=== PATIENT | male | born 1980 | race Caucasian/White ===

== ENCOUNTER → 2017-06-08 | Outpatient (CLI) | payer BC ==
[2017-06-08 09:34] LABS: BASO % 0.4 %; BASO ABS # 0.02 K/uL (0-0.2); EOS % 3.5 %; EOS ABS # 0.17 K/uL (0-0.5); HEMATOCRIT 44.6 % (42-52); IG# 0.02 K/uL (0.00-0.02); LYMPH % 20.4 %; LYMPH ABS # 0.99 K/uL (1.2-3.4); MEAN CELL VOLUME 86.9 fL (80-100); MEAN CORPUSCULAR HEMOGLOBIN 31.2 pg (25-34); MEAN CORPUSCULAR HGB CONC 35.9 g/dl (32-36); MEAN PLATELET VOLUME 10.1 fL (7.4-10.4); MONO % 19.1 %; MONO ABS # 0.93 K/uL (0.11-0.59); NEUT % 56.2 %; NEUT ABS # 2.73 K/uL (1.4-6.5); PLATELET COUNT 217 K/uL (130-400); RED CELL DISTRIBUTION WIDTH SD 44.8 fL (36.4-46.3); WHITE BLOOD COUNT 4.86 K/uL (4.8-10.8)
[2017-06-08 10:00] LABS: HEMOGLOBIN A1C 5.4 % (4.5-5.6)
[2017-06-08 10:13] LABS: ALBUMIN 3.7 gm/dl (3.4-5.0); ALT/SGPT 44 U/L (12-78); AST/SGOT 22 U/L (15-37); BLOOD UREA NITROGEN 17 mg/dl (7-18); CALCIUM 8.7 mg/dl (8.5-10.1); CARBON DIOXIDE 31 mmol/L (21-32); CHOLESTEROL 155 mg/dl (0-200); CREATININE 1.03 mg/dl (0.60-1.40); GLUCOSE 56 mg/dl (70-99); PHOSPHORUS 2.5 mg/dl (2.5-4.9); POTASSIUM 3.5 mmol/L (3.5-5.1); SODIUM 140 mmol/L (136-145)
[2017-06-08 10:22] LABS: ALKALINE PHOSPHATASE 82 U/L (45-117); LDL CHOLESTEROL (DIRECT) 84 mg/dl; TOTAL PROTEIN 7.5 gm/dl (6.4-8.2)
== END | disposition home or self-care (01) ==
LOC: C.LAB 07:27
PROVIDERS: ATTEND Internal Medicine
DX: E55.9 Vitamin D deficiency, unspecified (principal); M79.1 Myalgia; R68.82 Decreased libido